=== PATIENT | female | born 1975 | race Hispanic/Latino ===

== ENCOUNTER 2020-02-01 03:46 | Emergency (ER) | payer BC ==
--- NOTE | 2020-02-01 10:53 | CT ---
PRELIMINARY REPORT/[facility]/AFTER HOURS PROCEDURE CT HEAD WITHOUT CONTRAST: CT CERVICAL SPINE WITHOUT CONTRAST: 02/01/2020 4:17 a.m. INDICATION: Trauma. Fall. TECHNIQUE: Axial CT imaging was performed through the head without intravenous administration of contrast. Anabel gopi CT was then performed through the cervical spine with coronal and sagittal reconstructions genera juan a and reviewed. Exam was performed using one or more of the following dose reduction techniques: automated exposure control, adjustment of the mA and/or kV according to patient size, or use of itera tive reconstruction technique. COMPARISON: None. CT HEAD FINDINGS: Imaging begins at the lower maxillary level. Right posterior parietal soft tissue swelling is seen. There is no intracranial hemorrhage. There is no mass and no mass effect. There is no CT evidence of acute infarct. Cranial vault shows no evidence of fracture. Mastoid air cells are well-aerated. Orbital structures are unremarkable. Right maxillary sinus is completely opacifie d. Remaining sinuses are clear. IMPRESSION: 1. CT imaging shows no acute traumatic intracranial abnormality. 2. Right posterior parietal extracranial soft tissue contusion. 3. Right maxillary sinusitis. CT CERVICAL SPINE FINDINGS: There is no evidence of an acute fracture. 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 Disc space narrowing is seen at C3-C4 and C5-C6 wit h disc-osteophyte complex formation. There is no malalignment. Prevertebral and retropharyngeal sof t tissues are normal. There is no apical pneumothorax. IMPRESSION: 1. CT of the cervical spine shows no evidence of fracture. 2. vertebral degenerative change at C3-C4 and C5-C6. ELECTRONICALLY SIGNED BY: Karan Deutsch DO Feb 01, 2020 4:39:52 AM CDT This report is intended for review by the ordering physician only, in accordance of law. If you recei ve this report in error, please call [facility] at [phone]. FINAL REPORT EMERGENT AFTER HOURS CT CERVICAL SPINE PERFORMED WITHOUT CONTRAST ENHANCEMENT: HISTORY: Neck pain status post fall. FINDINGS: The vertebral bodies are normal in height. There are moderate degenerative osteophytic changes and mi ld disk narrowing at C3-C4 and also changes at the C5-C6 level. The facets are in normal alignment. T here is some borderline right-sided foraminal narrowing at C3-C4. There is no central canal stenosis and no CT evidence for fracture. The lung apices are clear. IMPRESSION: No CT evidence of fracture of the cervical spine. This report is in agreement with the temporary report issued by [facility]. CODE QA
--- NOTE | 2020-02-01 11:21 | CT ---
PRELIMINARY REPORT/[facility]/AFTER HOURS PROCEDURE CT HEAD WITHOUT CONTRAST: CT CERVICAL SPINE WITHOUT CONTRAST: 02/01/2020 4:17 a.m. INDICATION: Trauma. Fall. TECHNIQUE: Axial CT imaging was performed through the head without intravenous administration of contrast. Anabel gopi CT was then performed through the cervical spine with coronal and sagittal reconstructions genera juan a and reviewed. Exam was performed using one or more of the following dose reduction techniques: automated exposure control, adjustment of the mA and/or kV according to patient size, or use of itera tive reconstruction technique. COMPARISON: None. FINDINGS: HEAD: Imaging begins at the lower maxillary level. Right posterior parietal soft tissue swelling is seen. There is no intracranial hemorrhage. There is no mass and no mass effect. There is no CT donnell dence of acute infarct. Cranial vault shows no evidence of fracture. Mastoid air cells are well-aer ated. Orbital structures are unremarkable. Right maxillary sinus is completely opacified. Remainin g sinuses are clear. IMPRESSION: 1. CT imaging shows no acute traumatic intracranial abnormality. 2. Right posterior parietal extracranial soft tissue contusion. 3. Right maxillary sinusitis. CERVICAL SPINE: There is no evidence of an acute fracture. A chronic fibrous-nonunion of the tip of the spinous process of C7 is noted. Disc space narrowing is seen at C3-C4 and C5-C6 with disc-osteo phyte complex formation. There is no malalignment. Prevertebral and retropharyngeal soft tissues ar e normal. There is no apical pneumothorax. IMPRESSION: 1. CT of the cervical spine shows no evidence of fracture. 2. vertebral degenerative change at C3-C4 and C5-C6. ELECTRONICALLY SIGNED BY: Karan Deutsch DO Feb 01, 2020 4:39:52 AM CDT This report is intended for review by the ordering physician only, in accordance of law. If you recei ve this report in error, please call [facility] at [phone]. FINAL REPORT EMERGENT AFTER HOURS CT BRAIN PERFORMED WITHOUT CONTRAST ENHANCEMENT: HISTORY: Head injury. FINDINGS: The ventricular and cisternal system is within normal limits. There are no signs of intracerebral hem orrhage or extraaxial fluid collection. The mastoid air cells are clear. The right maxillary sinus is completely opacified. A right posterior scalp hematoma is noted. IMPRESSION: No acute intracranial abnormalities. This report is in agreement with the temporary report issued by [facility]. CODE QA
== END 2020-02-01 06:02 | disposition home or self-care (01) ==
LOC: ERS 03:46
DX: S01.01XA Laceration without foreign body of scalp, initial encounter (principal); W18.30XA Fall on same level, unspecified, initial encounter
CPT/HCPCS: 12001; 70450; 72125